=== PATIENT | male | born 1935 | race Caucasian/White ===

== ENCOUNTER 2017-01-16 08:19 | Day surgery (SDC) | payer MEDICARE, BC ==
[2017-01-16] MEDS ORDERED: LIDOCAINE 2% MDV (20MG/ML) 20ML VIAL IV ONE ×2 (08:20)
[2017-01-16] MEDS ORDERED: EPINEPHRINE 1 MG/ML AMPUL SQ ONE (08:20)
[2017-01-16] MEDS ORDERED: TETRACAINE HCL 0.5% OPTH 2ML SOLU OPTH ONE (08:20)
[2017-01-16] MEDS ORDERED: TETRACAINE HCL 0.5% 15 ML OPTH BTL OPTH ONE (08:20)
[2017-01-16] MEDS ORDERED: PROPOFOL 10 MG/ML VIAL IV ONE (08:20)
[2017-01-16] MEDS ORDERED: LIDOCAINE 1% MPF 100MG/10ML STERILE-PAK AMPULE IV ONE (08:20)
[2017-01-16] MEDS ORDERED: NEOMYCIN/POLY./DEXAM OPTH OINT OPTH ONE (08:20)
[2017-01-16] MEDS ORDERED: CIPROFLOXACIN HCL 0.0015 GM, PHENYLEPHRINE HCL 0.05 GM, KETOROLAC TROMETHAMINE 0.000625 GM MC ONE ×5 (14:15)
--- NOTE | 2017-01-16 18:55 | Operative Note ---
DATE OF PROCEDURE: 01/16/17. PREOPERATIVE DIAGNOSIS: Nuclear sclerotic cataract, right eye. POSTOPERATIVE DIAGNOSIS: Nuclear sclerotic cataract, right eye. OPERATION: Phacoemulsification of cataractous lens with implantation of intraocular lens. LENS IMPLANT USED: Pierce Model PCB00 + 23.0 diopters. COMPLICATIONS: None. PROCEDURE IN DETAIL: Following a retrobulbar and facial block, the patient was prepped and draped in the usual fashion for eye surgery. A lid speculum was placed in the right eye after which a 2.4 mm tunnel wound was placed at the temporal limbus and dissected into clear cornea. A paracentesis was placed at 2 o'clock hours to the left and right of the initial incision and the chamber deepened with Viscoelastic. The keratome was then used to enter the anterior chamber after which the continuous circular capsulorrhexis was accomplished without difficulty using a bent needle and a Utrata forceps. Hydrodissection and hydrodelineation of the lens was performed after which the nucleus of the lens was removed using the Phaco handpiece in the [id number] technique. The residual cortical material was irrigated and aspirated from the eye after which the bag and chamber were re-examined. The bag was re-inflated with Viscoelastic and the intraocular lens injected into the capsular bag where it centered well. The Viscoelastic was then copiously irrigated and aspirated from the eye after which the temporal tunnel wound and paracentesis were hydrated and the wounds were examined. They were noted to be watertight. The lid speculum was removed from the eye and the eye patched and shielded. The patient was transferred to the recovery room in satisfactory condition and given an appointment to be reexamined in the clinic later today or as directed by Dr. Iqbal. JOB NUMBER: [id number] [facility]
== END 2017-01-16 11:17 | disposition home or self-care (01) ==
LOC: SUR 08:19
PROVIDERS: ATTEND Ophthalmology
DX: H25.11 Age-related nuclear cataract, right eye (principal); I10 Essential (primary) hypertension; E78.00 Pure hypercholesterolemia, unspecified; E11.9 Type 2 diabetes mellitus without complications; Z79.84 Long term (current) use of oral hypoglycemic drugs; Z79.4 Long term (current) use of insulin
CPT/HCPCS: 36416; 82948; J0171; J3490

== ENCOUNTER 2017-02-03 11:27 | Emergency (ER) | payer MEDICARE, BC ==
[2017-02-03] MEDS ORDERED: MECLIZINE 25 MG TABLET PO ONE (12:09)
--- NOTE | 2017-02-03 12:13 | Emergency Department Record ---
History of Present Illness - General Chief Complaint: Dizziness Stated Complaint: BAY/DIZZINESS Time Seen by Provider: 02/03/17 12:02 Source: Patient Mode of Arrival: Ambulatory Limitations: No limitations - History of Present Illness Initial Comments: The patient is here due to dizziness off and on for 3 days. The symptoms came on with turning his head to the R in bed and since worsen with any head movement. He feels off balance at times but denies any visual changes, arm or leg numbness, weakness, nausea or ANY headache or head pain. The patient has had similar symptoms in the past but now it seems to be a little worse. MD Complaint: Dizziness Onset/Timin -: Days(s) Timing: Awoke with symptoms Description: Off-balance, "Room spinning", Sense of movement, Other History of Same: No History of Trauma: No Severity: Mild Improves With: Nothing Worsens With: Position, Other (movement of his head worsens the symptoms.) Associated Symptoms: Denies other symptoms - Related Data Home Medications Medication Instructions Recorded Confirmed Last Taken Amlodipine Besylate [Norvasc] 5 mg PO DAILY 02/03/17 02/03/17 Unknown Dutasteride/Tamsulosin HCl [Jacqueline 0.5 mg PO DAILY 02/03/17 02/03/17 Unknown 0.5-0.4 mg Capsule] Hydrochlorothiazide 25 mg PO DAILY 02/03/17 02/03/17 Unknown Metformin HCl [Metformin HCl ER] 1,000 mg PO BID 02/03/17 02/03/17 Unknown Simvastatin 40 mg PO DAILY 02/03/17 02/03/17 Unknown Tamsulosin HCl [Flomax] 0.4 mg PO DAILY 02/03/17 02/03/17 Unknown Previous Rx's Medication Instructions Recorded Meclizine HCl [Antivert] 25 mg PO Q8H #20 tablet 02/03/17 Allergies Allergy/AdvReac Type Severity Reaction Status Date / Time indomethacin Allergy Unknown PT UNSURE Unverified 02/03/17 11:55 OF REACTION indomethacin sodium Allergy Unknown PT UNSURE Unverified 02/03/17 11:55 OF REACTION Latex Allergy: Allergy Unknown PT UNSURE Uncoded 02/03/17 11:55 OF REACTION Travel Screening - Travel/Exposure Within Last 30 Days Have you traveled within the last 30 days?: No Review of Systems Constitutional: Denies: Chills, Fever Eyes: Denies: Eye discharge ENT: Denies: Congestion Respiratory: Denies: Cough, Dyspnea Past Medical History - SOCIAL HISTORY Smoking Status: Former smoker Alcohol Use: None Drug Use: None - RESPIRATORY Hx Respiratory Disorders: No - CARDIOVASCULAR Hx Cardio Disorders: Yes Hx Hypertension: Yes - NEURO Hx Neuro Disorders: No - GI Hx GI Disorders: No - Hx Genitourinary Disorders: No - ENDOCRINE Hx Endocrine Disorders: Yes Comment:: victoza - MUSCULOSKELETAL Hx Musculoskeletal Disorders: No - PSYCH Hx Psych Problems: No - HEMATOLOGY/ONCOLOGY Hx Hematology/Oncology Disorders: No Family Medical History Any Significant Family History?: Yes Hx Resp Disorders: Father Physical Exam - General General Appearance: Alert, Oriented x3, Cooperative, No acute distress - Head Head exam: Atraumatic, Normocephalic, Normal inspection - Eye Eye exam: Normal appearance, PERRL, EOMI, Nystagmus (horizontal to the R mainly. ) - ENT ENT exam: Normal exam, Mucous membranes moist, Normal external ear exam, Normal orophraynx, TM's normal bilaterally Throat exam: Normal inspection. negative: Tonsillar erythema, Tonsillar exudate - Neck Neck exam: Normal inspection, Full ROM. negative: Tenderness - Respiratory Respiratory exam: Normal lung sounds bilaterally. negative: Respiratory distress - Cardiovascular Cardiovascular Exam: Regular rate, Normal rhythm, Normal heart sounds - GI/Abdominal GI/Abdominal exam: Soft, Normal bowel sounds. negative: Tenderness - Extremities Extremities exam: Normal inspection, Full ROM, Normal capillary refill. negative: Tenderness - Back Back exam: Reports: Normal inspection - Neurological Neurological exam: Alert, Normal gait, Oriented X3. negative: Abnormal gait, Altered, Motor sensory deficit Course Vital Signs 02/03/17 11:50 Temperature 97.7 F Pulse Rate 77 Respiratory 20 Rate Blood Pressure 151/74 Pulse Ox 96 - Reevaluation(s) Reevaluation #1: The patient is doing better at this time. He no longer has any dizziness and denies any BAY or weakness. 02/03/17 12:56 Reevaluation #2: The patient is doing a lot better and his symptoms have resolved. He denies any weakness or dizziness and is able to get up and walk with no problems. I did explain to him that his test results are normal and he is to see his PCP later this week for recheck. 02/03/17 13:12 Medical Decision Making - Data Complexity MDM Data: Labs Ordered and/or Reviewed, X-Ray Ordered and/or Reviewed, EKG Ordered and/or Reviewed - Lab Data Result diagrams: 02/03/17 12:00 02/03/17 12:00 - EKG Data -: EKG Interpreted by Me EKG: No Acute Changes (Prolonged VT interval.) - Radiology Data Radiology results: Report reviewed (Head CT: Neg.) Disposition Disposition: Discharge Clinical Impression: Vertigo Disposition: Home, Self-Care Condition: (2) Stable Instructions: Dizziness (ED) Additional Instructions: Please see your PCP for recheck later this week. Please take Antivert for dizziness. Return to the ER for any worsening symptoms or any arm or leg weakness, numbness, or trouble speaking or walking. Prescriptions: Meclizine HCl [Antivert] 25 mg PO Q8H #20 tablet Forms: Patient Portal Access Time of Disposition: 13:14 Quality - Quality Measures Quality Measures: N/A - Blood Pressure Screening View Details: Yes Does Patient Have Any of the Following: No Blood Pressure Classification: Hypertensive Reading Systolic Measurement: 151 Diastolic Measurement: 74 Screening for High Blood Pressure: < Pre-Hypertensive BP, F/U Documented > [ G8950] Pre-Hypertensive Follow-up Interventions: Referral to alternative/primary care provider.
[2017-02-03 12:15] LABS: BASO % 0.3 % (0-6); EOS % 1.8 % (0-6); GRAN % 71.6 % (47-80); HEMATOCRIT 48.7 % (42.0-52.0); HEMOGLOBIN 16.1 gm/dl (14.0-18.0); LYMPH % 17.7 % (16-45); MEAN CELL VOLUME 84.3 fl (81-97); MEAN CORPUSCULAR HGB CONC 33.1 g/dl (32-36); MEAN PLATELET VOLUME 10.8 fl (7.4-10.4); MONO % 8.6 % (0-9); PLATELET COUNT 268 K/uL (130-400); RED BLOOD COUNT 5.78 M/uL (4.40-5.70); RED CELL DISTRIBUTION WIDTH 13.6 % (11.5-14.5); WHITE BLOOD COUNT W/O DIFF 7.9 K/uL (4.2-12.2)
[2017-02-03 12:16] LABS: MEAN CORPUSCULAR HEMOGLOBIN 27.8 pg (27-33)
[2017-02-03 12:30] LABS: BLOOD UREA NITROGEN 20 mg/dL (8-23); CREATININE 0.9 mg/dL (0.7-1.2); EST GLOMERULAR FILTRATION RATE > 60 mL/min
[2017-02-03 12:31] LABS: TOTAL PROTEIN 7.4 g/dL (6.6-8.7)
[2017-02-03 12:33] LABS: GLUCOSE,RANDOM 136 mg/dL (74-109)
[2017-02-03 12:36] LABS: ALB/GLOB RATIO 1.4 (1.1-1.8); ALBUMIN 4.3 g/dL (4.0-5.0); ALKALINE PHOSPHATASE 88 U/L (40-129); ALT/SGPT 11 U/L (<41); AST/SGOT 16 U/L (10.0-50.0)
--- NOTE | 2017-02-03 13:19 | CT SCAN REPORT ---
EXAM: CT OF THE BRAIN WITHOUT CONTRAST HISTORY: VERTIGO. TECHNIQUE: Sequential axial images were obtained from the foramen magnum to the vertex without contrast administration. FINDINGS: The brain volume is normal. No large territorial infarct, hemorrhage , mass effect, or midline shift. No extraaxial fluid collection. The orbits, paranasal sinuses, and mastoid air cells are normal. No depressed skull fracture. IMPRESSION: NO ACUTE INTRACRANIAL ABNORMALITY IS APPRECIATED. [facility] [id number] [facility]
== END 2017-02-03 13:22 | disposition home or self-care (01) ==
LOC: ER 11:27
DX: R42 Dizziness and giddiness (principal); R51 Headache; I10 Essential (primary) hypertension; F17.210 Nicotine dependence, cigarettes, uncomplicated
CPT/HCPCS: 70450; 80053; 85025; 93005; 93010; 99284

== ENCOUNTER 2017-02-06 06:57 | Day surgery (SDC) | payer MEDICARE, BC ==
[2017-02-06] MEDS ORDERED: TETRACAINE HCL 0.5% OPTH 2ML SOLU OPTH ONE (06:58)
[2017-02-06] MEDS ORDERED: LIDOCAINE 2% MDV (20MG/ML) 20ML VIAL IV ONE ×2 (06:58)
[2017-02-06] MEDS ORDERED: EPINEPHRINE 1 MG/ML AMPUL SQ ONE (06:58)
[2017-02-06] MEDS ORDERED: TETRACAINE HCL 0.5% 15 ML OPTH BTL OPTH ONE (06:58)
[2017-02-06] MEDS ORDERED: NEOMYCIN/POLY./DEXAM OPTH OINT OPTH ONE (06:58)
[2017-02-06] MEDS ORDERED: PROPOFOL 10 MG/ML VIAL IV ONE (06:58)
[2017-02-06] MEDS ORDERED: CIPROFLOXACIN HCL 0.0015 GM, PHENYLEPHRINE HCL 0.05 GM, KETOROLAC TROMETHAMINE 0.000625 GM MC ONE ×5 (11:30)
--- NOTE | 2017-02-07 06:35 | OP NOTE CHAMES ---
DATE OF PROCEDURE: 02/06/2017. PREOPERATIVE DIAGNOSIS: Nuclear sclerotic cataract, left eye. POSTOPERATIVE DIAGNOSIS: Nuclear sclerotic cataract, left eye. OPERATION: Phacoemulsification of cataractous lens with implantation of intraocular lens. LENS IMPLANT USED: Pierce Model PCB00 + 22.5 diopters. COMPLICATIONS: None. PROCEDURE IN DETAIL: Following a retrobulbar and facial block, the patient was prepped and draped in the usual fashion for eye surgery. A lid speculum was placed in the left eye after which a 2.4 mm tunnel wound was placed at the temporal limbus and dissected into clear cornea. A paracentesis was placed at 2 oclock hours to the left and right of the initial incision and the chamber deepened with Viscoelastic. The keratome was then used to enter the anterior chamber after which the continuous circular capsulorrhexis was accomplished without difficulty using a bent needle and a Utrata forceps. Hydrodissection and hydrodelineation of the lens was performed after which the nucleus of the lens was removed using the Phaco handpiece in the [id number] technique. The residual cortical material was irrigated and aspirated from the eye after which the bag and chamber were re-examined. The bag was re-inflated with Viscoelastic and the intraocular lens injected into the capsular bag where it centered well. The Viscoelastic was then copiously irrigated and aspirated from the eye after which the temporal tunnel wound and paracentesis were hydrated and the wounds were examined. They were noted to be watertight. The lid speculum was removed from the eye and the eye patched and shielded. The patient was transferred to the recovery room in satisfactory condition and given an appointment to be reexamined in the clinic later today or as directed by Dr. Iqbal. [facility]: [id number] [facility]
== END 2017-02-06 09:50 | disposition home or self-care (01) ==
LOC: SUR 06:57
PROVIDERS: ATTEND Ophthalmology
DX: H25.12 Age-related nuclear cataract, left eye (principal)
CPT/HCPCS: J0171

== ENCOUNTER 2018-03-10 10:54 | Observation (INO) | payer MEDICARE, BC ==
[2018-03-10] MEDS ORDERED: ACETAMINOPHEN 500 MG TABLET PO ONE (11:03)
--- NOTE | 2018-03-10 11:06 | Emergency Department Record ---
History of Present Illness - General Chief complaint: Pain Stated complaint: FALL/HIP PAIN Time Seen by Provider: 03/10/18 11:00 Source: Patient Mode of Arrival: Ambulatory Limitations: No limitations - History of Present Illness Initial comments: 82 yo male presents with left hip and pelvic pain. He fell yesterday. She states he was walking and his leg gave out. He states this happens from time to time. He landed on his left hip. He states the pain has not improved since last night. He lives alone and is have significant difficulty getting around. No weakness, no foot drop, no numbness or tingling. He denies any other injury. No headache, neck pain or back pain. No prior left hip surgery. Dr Veliz is his PCP. He has had prior knee surgery. MD Complaint: Extremity pain, Joint pain, Joint swelling -: Days(s) (1) Location: Left History of Same: No -: Yes Arthralgia Radiation: Proximal Quality: Aching Consistency: Constant Improves with: Immobilization Worsens with: Exertion, Palpation, Walking, Weight bearing Associated Symptoms: Denies other symptoms - Related Data Home Medications Medication Instructions Recorded Confirmed Last Taken Carvedilol [Coreg] 3.125 mg PO BID 03/10/18 03/10/18 1 Day Ago ~03/09/18 Lisinopril 40 mg PO DAILY 03/10/18 03/10/18 1 Day Ago ~03/09/18 Rosuvastatin Calcium 40 mg PO DAILY 03/10/18 03/10/18 1 Day Ago ~03/09/18 Previous Rx's Medication Instructions Recorded Meclizine HCl [Antivert] 25 mg PO Q8H #20 tablet 02/03/17 Allergies Allergy/AdvReac Type Severity Reaction Status Date / Time indomethacin Allergy Unknown PT UNSURE Verified 03/10/18 11:05 OF REACTION indomethacin sodium Allergy Unknown PT UNSURE Verified 03/10/18 11:05 OF REACTION Latex Allergy: Allergy Unknown PT UNSURE Uncoded 03/10/18 11:05 OF REACTION Review of Systems Constitutional: Denies: Chills, Fever, Weakness Eyes: Denies: Eye discharge ENT: Denies: Congestion, Throat pain Respiratory: Denies: Cough, Dyspnea Cardiovascular: Denies: Chest pain, Syncope Endocrine: Denies: Fatigue Gastrointestinal: Denies: Abdominal pain, Diarrhea, Nausea, Vomiting Genitourinary: Denies: Dysuria, Frequency, Hematuria Musculoskeletal: Reports: As per HPI, Arthralgia Skin: Denies: Bruising, Change in color, Rash Neurological: Denies: Confusion, Headache Psychiatric: Denies: Anxiety Hematological/Lymphatic: Denies: Blood Clots, Easy bleeding, Easy bruising, Swollen glands Past Medical History - SOCIAL HISTORY Smoking Status: Former smoker - RESPIRATORY Hx Respiratory Disorders: No - CARDIOVASCULAR Hx Cardio Disorders: Yes Hx Hypertension: Yes - NEURO Hx Neuro Disorders: No - GI Hx GI Disorders: No - Hx Genitourinary Disorders: No - ENDOCRINE Hx Endocrine Disorders: Yes Comment:: victoza - MUSCULOSKELETAL Hx Musculoskeletal Disorders: No - PSYCH Hx Psych Problems: No - HEMATOLOGY/ONCOLOGY Hx Hematology/Oncology Disorders: No Family Medical History Hx Resp Disorders: Father Physical Exam - General General Appearance: Alert, Oriented x3, Cooperative, No acute distress Limitations: No limitations - Head Head exam: Atraumatic, Normal inspection - Eye Eye exam: Normal appearance, PERRL. negative: Conjunctival injection - ENT ENT exam: Normal exam, Mucous membranes moist Ear exam: Normal external inspection Nasal Exam: Normal inspection Mouth exam: Normal external inspection - Neck Neck exam: Normal inspection - Respiratory Respiratory exam: Normal lung sounds bilaterally. negative: Respiratory distress - Cardiovascular Cardiovascular Exam: Regular rate, Normal rhythm, Normal heart sounds - GI/Abdominal GI/Abdominal exam: Soft. negative: Distended, Guarding, Tenderness - Rectal Rectal exam: Deferred - exam: Deferred - Extremities Extremities exam: Normal inspection, Full ROM, Normal capillary refill, Tenderness, Other (No foot drop, foot plantar flexion and dorsiflexion intact, pain with internal rotation and flexion) Image of Full Body: 1 - tender lateral hip, bears weight but with pain, no foot drop, no groin tenderness, no shortening or deformity - Back Back exam: Denies: CVA tenderness (R), CVA tenderness (L) - Neurological Neurological exam: Alert, Oriented X3 - Psychiatric Psychiatric exam: Normal affect, Normal mood - Skin Skin exam: Dry, Intact, Normal color, Warm Course - Reevaluation(s) Reevaluation #1: The patient required two people assist to safely get him in bed. 03/10/18 12:[address] of the pelvis was reviewed. No acute fracture or acute process. 03/10/18 12:09 The patient has too much pain to ambulate independently. He is not safe for home as he lives alone. I discussed this with the patient and granddaughter. I discussed this with Dr Brito He will be admitted for pain control, PT therapy, and monitoring for safety for future disposition. 03/10/18 12:39 03/10/18 13:09 The labs were reviewed. No significant abnormalities Medical Decision Making - Lab Data Result diagrams: 03/10/18 12:36 03/10/18 12:36 Disposition Disposition: Admit Clinical Impression: Hip joint painful on movement Disposition: Still a Patient at [facility] Decision to Admit: Admit from ER Decision to Admit Date: 03/10/18 Decision to Admit Time: 12:09 Condition: (2) Stable Time of Disposition: 12:09 Quality - Quality Measures Quality Measures: N/A - Blood Pressure Screening Does Patient Have Any of the Following: Active Dx of HTN Blood Pressure Classification: Hypertensive Reading Systolic Measurement: 165 Diastolic Measurement: 91 Screening for High Blood Pressure: Patient Exclusion, Hx of HTN [G9744]
--- NOTE | 2018-03-10 12:33 | CT SCAN REPORT ---
EXAM: NONCONTRAST CT OF THE PELVIS HISTORY: LEFT HIP PAIN AFTER FALL. TECHNIQUE: Noncontrast CT of the pelvis was obtained. Comparison: None. FINDINGS: No acute fracture is seen. No dislocation. Mild to moderate osteoarthrosis of both femoral acetabular joints, slightly greater on the left. Bilateral sacroiliac joint arthrosis, greater on the right with bridging anterior osteophytes. Disk degeneration and facet arthrosis in the lower lumbar levels. Bilateral neural foraminal stenosis at L4-L5 and right neural foraminal stenosis at L5- S1. No appreciable hip joint effusion by CT. Multiple sclerotic foci involving both iliac bones as well as the proximal left femur, the largest is in the left supraacetabular region, measuring approximately 18 x 18 mm (series 3 image 48). Small fat containing right inguinal hernia. The prostate gland appears enlarged and nodular. Mildly prominent lymph nodes are noted anterior to the urinary bladder, measuring up to 9 mm in short axis diameter. Small fat containing umbilical hernia. Diffuse vascular calcifications. Colonic diverticulosis without visible inflammatory changes. IMPRESSION: 1. NO DEFINITE ACUTE FRACTURE OF THE PROXIMAL FEMURS OR PELVIS. IF THERE IS CONCERN FOR AN OCCULT FRACTURE, CONSIDER FOLLOW-UP WITH MRI. 2. DEGENERATIVE CHANGES OF THE HIPS AND PELVIS. LOWER LUMBAR SPINE DEGENERATIVE CHANGES WITH NEURAL FORAMINAL STENOSIS BILATERALLY. 3. MULTIPLE INDETERMINATE SCLEROTIC FOCI WITHIN THE ILIAC BONES AND PROXIMAL LEFT FEMUR. 4. ENLARGED NODULAR PROSTATE GLAND. PROMINENT PELVIC LYMPH NODES ARE NOTED ANTERIOR TO THE URINARY BLADDER. RECOMMEND CORRELATION WITH PSA AND/OR UROLOGIC CONSULTATION. 5. SMALL FAT CONTAINING RIGHT INGUINAL AND UMBILICAL HERNIAS. 6. ADDITIONAL LIKELY INCIDENTAL AND CHRONIC FINDINGS ARE DESCRIBED IN THE BODY OF THE REPORT. J[facility]BER: [id number] [facility]
[2018-03-10 12:45] LABS: BASO % 0.1 % (0-6); EOS % 0.3 % (0-6); GRAN % 77.8 % (47-80); HEMOGLOBIN 15.6 gm/dl (14.0-18.0); LYMPH % 10.9 % (16-45); MEAN CELL VOLUME 84.1 fl (81-97); MEAN CORPUSCULAR HEMOGLOBIN 27.3 pg (27-33); MEAN CORPUSCULAR HGB CONC 32.5 g/dl (32-36); MEAN PLATELET VOLUME 10.4 fl (7.4-10.4); MONO % 10.9 % (0-9); PLATELET COUNT 237 K/uL (130-400); RED BLOOD COUNT 5.71 M/uL (4.40-5.70); RED CELL DISTRIBUTION WIDTH 13.8 % (11.5-14.5); WHITE BLOOD COUNT W/O DIFF 11.3 K/uL (4.2-12.2)
[2018-03-10 12:57] LABS: BLOOD UREA NITROGEN 16 mg/dL (8-23)
[2018-03-10 12:58] LABS: CREATININE 0.8 mg/dL (0.7-1.2); EST GLOMERULAR FILTRATION RATE > 60 mL/min
[2018-03-10 13:00] LABS: GLUCOSE,RANDOM 133 mg/dL (74-109)
[2018-03-10] MEDS ORDERED: MORPHINE SULFATE 10 MG/ML VIAL IVP PRN (13:22)
[2018-03-10] MEDS ORDERED: ACETAMINOPHEN 325 MG TAB PO PRN (13:22)
[2018-03-10] MEDS: LISINOPRIL 40 MG PO SCH (15:22)
[2018-03-10] MEDS: HYDROCHLOROTHIAZIDE 25 MG PO SCH (15:22)
[2018-03-10] MEDS: METFORMIN HCL 1000 MG PO SCH ×2 (15:23→21:57)
[2018-03-10] MEDS: ROSUVASTATIN CALCIUM 40 MG PO SCH (15:23)
--- NOTE | 2018-03-10 16:35 | Rehab Evaluation ---
Patient Information - Patient Information Diagnosis: fall, intractible hip,pelvic pain Ordered Treatment: PT Evaluate and Treat Status: Initial Evaluation History: Detail (The patient presented in ED on 03/10/18 with complaints of L pelvic and hip pain after falling on 03/09/18 when he tripped over a throw rug, falling on L hip.) Past Medical/Surgical Hx: PAST MEDICAL/SURGICAL HISTORY Past Surgical History hernia; gerri TKA; PMH - Respiratory Hx Respiratory Disorders No PMH - Cardiovascular Hx Cardiovascular Disorders Yes Hx Hypertension Yes PMH - Neuro Hx Neurological Disorders No Hx Dizziness Yes: recent visit to ED for vertigo, resolved now PMH - GI Hx Gastrointestinal Disorders No PMH - Hx Genitourinary Disorders No PMH - Endocrine Hx Endocrine Disorders Yes Hx of NIDDM Yes: denies today Comment: victoza PMH - Musculoskeletal Hx Musculoskeletal Disorders No PMH - Psych Hx Psychiatric Problems No PMH - Hematology/Oncology Hx Hematology/Oncology No Disorders Premorbid Status: Detail (The patient was independent with all mobility prior to his fall and ambulating without assistive device.) Precautions: [place], Fall - Time With Patient Total Time Spent With Patient (Min): 30 Treatment Procedures: Detail (Initial Evaluation, gait training) Subjective Information - Subjective Information Per Patient (The patient had complaints of level 4 L hip pain using the 0-10 pain scale and a pulling sensation with movement superior to the iliac crest.) Objective Data - Mental Status Patient Orientation: Oriented x3 - Visual Perception Appears within normal limits for therapeutic activities - ROM Not within normal limits (The patient's L hip pain was not tested secondary to pain complaints. All other UE and LE AROM was WFL.) - Strength/Tone Within normal limits (The patient's UE strength was 5/5, R LE strength was 5/5, L LE strength was not tested secondary to pain complaints, however strength was functional ie: patient was able to complete a SLR and bear weight on L LE during ambulation.) - Bed Mobility Independent (The patient was independent with supine to sit and scooting up in bed. Movement with supine to sit were guarded and patient complained of pulling sensation just superior and lateral to iliac crest on the L.) - Transfers Independent (Independent with sit to and from stand transfer.) - Balance Balance Sitting: Good Balance Standing: Fair (The patient required use of walker secondary to L LE pain. Will assess patient's balance using objective balance test.) - Sensation Intact - Gait Detail (The patient ambulated with 2 wheeled walker a distance of 40 feet x 1 with CG of 1 for safety, WBAT on L LE and verbal cues for proper ambulation technique.) Therapy Assessment - Therapy Assessment Detail (The patient was independent with transfers and bed mobility and required CG for safety only with ambulation. Nursing staff was contacted to have patient ambulate with walker when going to the bathroom with their assistance.) Problem List - Problem List Physical Therapy Problem List: Detail (1) L sided back and hip pain with movement. 2) Impaired ambulation due to L Hip pain.) Goals - Goals Physical Therapy Goals: 1)Will monitor patient's mobility and potential equipment needs for home and ongoing PT. 2) Will evaluate the patient's balance using an objective balance test if tolerated. Prognosis - Prognosis Good Plan - Plan Physical Therapy Plan: PT 1 time a day to monitor mobility, balance and L hip pain as well as equipment needs.
[2018-03-10] MEDS ORDERED: KETOROLAC 30 MG/ML VIAL IVP PRN (17:10)
[2018-03-10] MEDS: PATIENT OWN MED: AMLODIPINE 10 MG PO SCH (18:04)
[2018-03-10] MEDS ORDERED: CARVEDILOL 3.125 MG TABLET PO SCH (22:00)
--- NOTE | 2018-03-11 08:50 | History and Physical Report ---
DATE OF ADMISSION: 03/10/2018 at 5 p.m. CHIEF COMPLAINT: Fall. HISTORY OF PRESENT ILLNESS: This 82-year-old male fell down landing on his left hip which is very painful. Seen in the emergency department by Dr. Shaikh and a CT of the pelvis and left hip were obtained showing no fractures. The patient was admitted to the hospital for pain control and ambulation and physical therapy. PAST MEDICAL HISTORY: Hypertension, vertigo, [id number] diabetes mellitus type 2, osteoarthritis. PAST SURGICAL HISTORY: Hernia repair, bilateral total knee arthroplasty. MEDICATIONS: 1. Amlodipine 10 mg daily. 2. Metformin 1000 mg b.i.d. 3. Crestor 40 mg daily. 4. Lisinopril 40 mg a day. 5. Hydrochlorothiazide 25 mg a day. ALLERGIES: INDOMETHACIN, nausea and GI upset. PSYCHOSOCIAL HISTORY: Former smoker. Used to smoke a pipe. FAMILY HISTORY: Father had respiratory problems. REVIEW OF SYSTEMS: HEENT: No upper respiratory infection symptoms, cough, cold, or congestion. Cardiovascular: No chest pain, palpitations, or arrhythmia. Respiratory: No cough, cold, or congestion. Gastrointestinal: No nausea, vomiting, diarrhea, black stools, or bloody stools. Genitourinary: No dysuria, hematuria, frequency, or burning on urination. Musculoskeletal: He has pain in the low back and also the left hip area. He has some arthritis in the low back and multiple joints. Neurological: No CVA, paralysis, or paresthesias. Endocrine: He has diabetes type 2. No hypothyroidism. PHYSICAL EXAMINATION: VITALS: Height 6 feet 4 inches, weight 294 pounds. Temperature 97.3, pulse 90, blood pressure 126/74, respiratory rate 20, pulse ox 94% on room air. Weight by scale is 230 pounds, 6 feet 4 inches. HEENT: Pupils are equal, round, and reactive to light and accommodation. Extraocular muscles are intact. Throat is clear. Nose is clear. Tympanic membranes are braun. NECK: Supple. No jugular venous distention. No hepatojugular reflux. Pulses equal bilaterally. CARDIOVASCULAR: Regular rate and rhythm without murmurs, clicks, rubs, or gallops. RESPIRATORY: Clear to auscultation and percussion. ABDOMEN: Soft, nontender, obese. EXTREMITIES: Pain in the low back area and the left hip area on palpation but he is able to get up and walk with a walker. NEUROLOGIC: No CVA, paralysis, or paresthesias. MENTAL STATUS: Alert and oriented x3. Moving all 4 extremities. PSYCHIATRIC: Appropriate. IMPRESSION: 1. Contusion of the left hip and low back area. 2. Pain of the left hip and back area. PLAN: Observation. Physical therapy. Got him up and walked him with a walker and he did very well in the room with a walker. KIEL
[2018-03-11] MEDS: HYDROCHLOROTHIAZIDE 25 MG PO SCH (09:22)
[2018-03-11] MEDS: METFORMIN HCL 1000 MG PO SCH (09:22)
[2018-03-11] MEDS: LISINOPRIL 40 MG PO SCH (09:22)
[2018-03-11] MEDS: PATIENT OWN MED: AMLODIPINE 10 MG PO SCH (09:23)
[2018-03-11] MEDS: ROSUVASTATIN CALCIUM 40 MG PO SCH (09:23)
[2018-03-11] MEDS ORDERED: TAMSULOSIN HCL PO SCH (10:00)
[2018-03-11] MEDS ORDERED: DUTASTERIDE PO SCH (10:00)
[2018-03-11] MEDS ORDERED: ENOXAPARIN 40 MG/0.4 ML SYR SC SCH (10:00)
--- NOTE | 2018-03-11 11:15 | Physical Therapy Tx Note ---
Physical Therapy Tx Note - Treatment Note Physical Therapy Tx Note: Detail (Patient up in chair when PT arrived. Patient discharging today and states his pain is not too bad and he has been moving well. The patient was instructed to use a walker and states that he is getting a prescription for a walker from Dr. Brito. PT reviewed fall prevention techniques in the home environment.) Physical Therapy Problem List: Detail (1) L sided back and hip pain with movement. 2) Impaired ambulation due to L Hip pain.) Physical Therapy Goals: 1)Will monitor patient's mobility and potential equipment needs for home and ongoing PT. (Goal Met). 2) Will evaluate the patient's balance using an objective balance test if tolerated. (Goal not met due to continued pain complaints). Physical Therapy Plan: Patient discharging today. Patient to acquire a walker for home.
--- NOTE | 2018-03-11 11:26 | Discharge Note ---
VTE H&P Assessment - Risk for VTE Risk for VTE: Yes Risk Level: Moderate Risk Assessment Date: 03/10/18 Risk Assessment Time: 18:00 VTE Orders Placed or Will Be Placed: Yes Discharge Medications - Discharge Medications Home Medications: Ambulatory Orders Hydrochlorothiazide [Hctz] 25 mg PO DAILY 02/03/17 [Last Taken 1 Day Ago ~] Metformin HCl [Metformin ER Gastric] 1,000 mg PO BID 02/03/17 [Last Taken 1 Day Ago ~03/09/18] Amlodipine Besylate [Norvasc] 10 mg PO DAILY 03/10/18 [Last Taken Unknown] Lisinopril 40 mg PO DAILY 03/10/18 [Last Taken 1 Day Ago ~03/09/18] Rosuvastatin Calcium 40 mg PO DAILY 03/10/18 [Last Taken 1 Day Ago ~03/09/18] Acetaminophen [Tylenol 325Mg] 650 mg PO Q6H PRN tablet 03/11/18 [Last Taken Unknown] Discharge Note - Date Date of Discharge Note: 03/11/18 Disposition: Home, Self-Care Condition: (2) Stable Additional Instructions: Tylenol 500mg take 1-2 tablets every 6 hours as needed for pain. Cold rhianna to rhianna as needed See your doctor in 2-7 days Referrals: KIAN MURILLO [Primary Care Provider] - Forms: Patient Portal Access Activity at Discharge: Increase Activity as Tolerated (use a walker)
--- NOTE | 2018-03-12 10:50 | Discharge Summary ---
DATE: 03/11/2018 DISCHARGE DIAGNOSES: 1. Left hip contusion. 2. History of diabetes mellitus. 3. History of hypertension. 4. History of hypercholesterolemia. 5. Fall with contusion on the left hip and lumbar area. ATTENDING PHYSICIAN: Riley Brito DO REASON FOR HOSPITALIZATION: This 82-year-old male presented to the emergency department and fell down. The patient fell the day prior landing on his left hip. Very painful to walk. He did walk into the emergency department and then used a wheelchair upon arrival. He states that his leg gave out on him and caused the fall. He denies loss of consciousness or a head injury. He was evaluated by Dr. Shaikh and admitted to the hospital for pain control. He felt he could not get out of the emergency department. He was given 2 mg of MS and admitted to the hospital for observation. SIGNIFICANT FINDINGS: CT scan of the pelvis and left hip were negative for fractures showing degenerative joint disease. WBC 11,300, hemoglobin 15.6, potassium 3.9. When the patient was getting ready to be discharged, the nurse thought he had an irregular pulse. EKG was done showing normal sinus rhythm. No atrial fib. Incomplete right bundle-branch block. He refused pain medications in the hospital. HOSPITAL COURSE: Course of therapy provided and response to treatment is as soon as he got to the floor, the nurse got him up, he walked around in the hallway, was not having much distress. Only requesting Tylenol for pain and he refused the Tylenol and Motrin that were offered him. The next morning he was feeling much better. He felt he could go home. CONDITION ON DISCHARGE: Much improved. DISCHARGE INSTRUCTIONS: Follow up with his family doctor in 2-7 days. Cold packs to the areas that hurt. Tylenol 500 mg 1-2 tablets every 6 hours as needed for pain. Increase activity and will use a walker. He does feel much better with a walker, he said. This is an observation patient and I am on-call. KIEL
== END 2018-03-11 11:55 | disposition home or self-care (01) ==
LOC: ER 10:54 → MEDSURG 12:57 → INTOOBSV 12:57
PROVIDERS: ADMIT Emergency Medicine; ATTEND Emergency Medicine
DX: M25.552 Pain in left hip (principal); S70.02XA Contusion of left hip, initial encounter; I10 Essential (primary) hypertension; E11.9 Type 2 diabetes mellitus without complications; W19.XXXA Unspecified fall, initial encounter; Z96.653 Presence of artificial knee joint, bilateral; Z87.891 Personal history of nicotine dependence
CPT/HCPCS: 72192; 80048; 85025; 93005; 93010; 99217; 99220; 99285; J1650